=== PATIENT | female | born 1995 | race American Indian/Alaskan Native ===

== ENCOUNTER 2020-04-06 22:49 | Emergency (ER) | payer SELFPAY ==
[2020-04-06 22:57] VITALS: BP 149/92
[2020-04-06] MEDS ORDERED: ACETAMINOPHEN 500 MG TAB ONE (23:01)
[2020-04-06] MEDS ORDERED: ACETAMINOPHEN 500 MG TAB PO ONE (23:01)
== END 2020-04-06 23:30 | disposition left against medical advice (07) ==
LOC: ED 22:49
DX: R51 Headache (principal); Z53.21 Procedure and treatment not carried out due to patient leaving prior to being seen by health care provider